=== PATIENT | male | born 1975 | race Asian ===

== ENCOUNTER 2022-12-20 03:45 | Emergency (ER) | payer SELFPAY ==
[2022-12-20 03:56] VITALS: BMI 27.3
[2022-12-20] MEDS ORDERED: SODIUM CHLORIDE 0.9% 500 ML INFUS.BAG IV ONE (04:12)
[2022-12-20 04:21] LABS: BASO % 0.7 % (0-2.0); EOS % 3.2 % (0-4.5); HEMATOCRIT 48.9 % (35.4-49); HEMOGLOBIN 16.8 GM/dL (11.7-16.9); LYMPH % 28.4 % (8-40); MCH 30.1 pg (25.7-33.7); MCHC 34.3 g/dl (32.0-35.9); MEAN CELL VOLUME 87.7 fl (80-96); MEAN PLT VOLUME 8.4 fl (7.5-11.1); NEUT % 62.7 % (42.8-82.8); PLATELET COUNT 209 10^3/uL (134-434); RBC 5.57 M/mm3 (4.00-5.60); RDW 14.1 % (11.9-15.9); WHITE BLOOD COUNT 11.3 K/mm3 (4.0-10.0)
[2022-12-20 04:28] LABS: INR 0.99 (0.83-1.09); PROTHROMBIN TIME (PATIENT) 11.4 SEC (9.7-13.0)
[2022-12-20 04:31] LABS: ACTIVATED PTT 26.4 SECONDS (25.2-36.5)
[2022-12-20 04:42] LABS: CHLORIDE 106 mmol/L (98-107); SODIUM 142 mmol/L (136-145)
[2022-12-20 04:43] LABS: CALCIUM 8.7 mg/dL (8.5-10.1)
[2022-12-20 04:45] LABS: ALBUMIN 3.8 g/dl (3.4-5.0); ANION GAP 12 MMOL/L (8-16); CO2 25 mmol/L (21-32); GLUCOSE,RANDOM 93 mg/dL (74-106)
[2022-12-20 04:48] LABS: SGOT/AST 20 U/L (15-37); SGPT/ALT 40 U/L (13-61)
[2022-12-20 04:49] LABS: BILIRUBIN,TOTAL 0.7 mg/dL (0.2-1); TOT PROT 7.2 g/dl (6.4-8.2)
[2022-12-20 04:51] LABS: ALK PHOS 109 U/L (45-117)
[2022-12-20] MEDS ORDERED: LABETALOL HCL 5 MG/1 ML (100MG/20 ML VIAL) IVPUSH ONE (06:14)
[2022-12-20] MEDS ORDERED: LABETALOL HCL 5 MG/1 ML (100MG/20 ML VIAL) ONE (06:16)
[2022-12-20 06:30] LABS: EPI CELLS 2 /uL (0-25.1); HYALINE CASTS 0 /uL (0-3.1); PH,URINE 7.5 (5.0-8.0); URINE APPEARANCE CLEAR; URINE BACTERIA 2 /uL (0-1359); URINE BILIRUBIN NEGATIVE (NEGATIVE); URINE COLOR YELLOW; URINE GLUCOSE (UA) NEGATIVE (NEGATIVE); URINE KETONE NEGATIVE (NEGATIVE); URINE LEUK ESTERASE NEGATIVE (NEGATIVE); URINE NITRITE NEGATIVE (NEGATIVE); URINE PROTEIN TRACE (NEGATIVE); URINE RBC 4 /uL (0-23.9); URINE UROBILINOGEN 0.2 mg/dL (0.2-1.0); URINE WBC 3 /uL (0-25.8)
[2022-12-20] MEDS ORDERED: LABETALOL IN NACL, ISO-OSMOTIC 300 MG/300 ML BAG IV SCH (06:30)
[2022-12-20] MEDS ORDERED: NICARDIPINE 25 MG in DEXTROSE 5%-WATER - 240 ML IVPB SCH ×2 (06:30→06:45)
[2022-12-20 06:35] LABS: COCAINE, UR NEGATIVE (NEGATIVE); OPIATES, URI NEGATIVE (NEGATIVE)
[2022-12-20 06:36] LABS: VENOUS BASE EXCESS -4.8 mmol/L (-2-2); VENOUS O2 SATURATION 72.6 % (70-80); VENOUS PCO2 46.7 mmHg (38-52); VENOUS PH 7.292 (7.310-7.410)
[2022-12-20 06:37] LABS: PHENCYCLIDINE,URINE NEGATIVE (NEGATIVE)
[2022-12-20] MEDS ORDERED: levETIRAcetam 500 MG/5 ML INJECTION VIAL IVPB ONE ×2 (06:37→06:44)
[2022-12-20 06:39] LABS: METHADONE, UR NEGATIVE (NEGATIVE); URINE AMPHETAMINES NEGATIVE (NEGATIVE); URINE BARBITURATES NEGATIVE (NEGATIVE); URINE BENZODIAZEPINES POSITIVE (NEGATIVE)
[2022-12-20 07:24] VITALS: BP 160/117; PULSE 105
[2022-12-20 07:28] VITALS: RESP 22; TEMP 98
== END 2022-12-20 07:28 | disposition short-term general hospital (02) ==
LOC: JER 03:45
PROC: 3E033GC Introduction of Other Therapeutic Substance into Peripheral Vein, Percutaneous Approach (ICD-10-PCS; principal; 2022-12-20)
DX: R56.9 Unspecified convulsions (principal); S06.6X9A Traumatic subarachnoid hemorrhage with loss of consciousness of unspecified duration, initial encounter; W19.XXXA Unspecified fall, initial encounter
CPT/HCPCS: 0241U-QW; 36415; 70450-TC; 70486-TC; 71045-TC-FY; 72125-TC; 72170-TC-FY; 80053; 80307; 81003; 82550; 82553; 82803; 82962; 84484; 85025; 85610; 85730; 87086; 99291; 99292